=== PATIENT | female | born 1955 | race Caucasian/White ===

== ENCOUNTER → 2016-06-20 | Outpatient (CLI) | payer OTHER ==
[~2016-06-20] MED LIST: AMT24 PO; CALC-274 PO; CZR25 PO; ESTR1CRE PV; GLUC250C PO; LEVO75TA PO; MULT-506 PO; OMEG10007 PO; POLY335025 PO; VENL75CA PO
--- NOTE | 2016-06-20 16:44 | MAMMOGRAPHY REPORT ---
BILATERAL DIGITAL SCREENING MAMMOGRAM TOMOSYNTHESIS WITH CAD: 06/20/2016 CLINICAL HISTORY: Routine screening. Patient has no complaints. TECHNIQUE: Breast tomosynthesis in addition to standard 2D mammography was performed. Current study was also evaluated with a Computer Aided Detection (CAD) system. COMPARISON: Comparison is made to exams dated: 06/21/2013 mammogram, 05/15/2011 mammogram, and 08/02/19 10 mammogram - [facility]. BREAST COMPOSITION: The tissue of both breasts is heterogeneously dense, which may obscure small ma sses. FINDINGS: No suspicious masses, calcifications, or areas of architectural distortion are noted in e ither breast. There has been no significant interval change compared to prior exams. IMPRESSION: ACR BI-RADS CATEGORY 1: NEGATIVE There is no mammographic evidence of malignancy. A 1 year screening mammogram is recommended. The p atient will receive written notification of the results. Approximately 10% of breast cancers are not detected with mammography. A negative mammographic repor t should not delay biopsy if a clinically suggestive mass is present. Lisset Arteaga M.D. ah/:06/20/2016 15:52:29 Ep Specialist: Licha Villarreal RT(R)(M), [facility] letter sent: Normal 1/2 BI-RADS Code: ACR BI-RADS Category 1: Negative
== END | disposition home or self-care (01) ==
LOC: C.MAMM 11:29
PROVIDERS: ATTEND Obstetrics & Gynecology
DX: Z12.31 Encounter for screening mammogram for malignant neoplasm of breast (principal)

== ENCOUNTER 2025-02-28 11:45 | Inpatient (IN) ==
[2025-02-28] MEDS: AMIODARONE / D5W 360 MG/200 ML BAG IV ONE (11:52)
--- NOTE | 2025-02-28 11:57 | Emergency Department Note ---
Impression & Plan Acute non-ST elevation myocardial infarction (NSTEMI), Chest pain, Elevated troponin I level, Hypokalemia ED Provider Note NAME: JASSI BEDOLLA AGE: 69 SEX: F : 1955 ARRIVES VIA: Ambulance INFORMANT: Patient, EMS ED PROVIDER(S): Gregory Alarcon DO CHIEF COMPLAINT: Chest pain HPI: The patient is a 69-year-old female who presented to the emergency department for an evaluation of chest pain. The patient had acute onset of chest pain while doing exertional activity and exercising this morning. The patient denies having any lower extremity pain. She denies having any abdominal pain or back pain. She describes the pain as a heaviness across her anterior chest. She has no history of STEMI in the past. The patient was noted to have frequent PVCs as well as hypotension prior to arrival. She was treated with aspirin as well as IV fluid. She was given a liter of normal saline prior to arrival. She also was receiving amiodarone bolus and drip because of bigeminy. The patient's blood pressure as well as pulse rate have improved at this time. Her pain she still rates is an 8 out of 10. ROS: See above HPI for pertinent positives & negatives. A total of 10 systems reviewed and were otherwise negative. PAST MEDICAL HISTORY: See Below PAST SURGICAL HISTORY: See Below FAMILY HISTORY: See Below SOCIAL HISTORY: See Below HOME MEDICATIONS: See Below ALLERGIES: See Below VITALS: See Below PHYSICAL EXAMINATION: GENERAL: The patient is awake and alert. The patient is very anxious. EYES: The conjunctivae are clear. The pupils are round and reactive. EARS, NOSE, MOUTH AND THROAT: The nose is without any evidence of any deformity. NECK: The neck is nontender and supple. RESPIRATORY: Normal respiratory effort is noted there is no evidence of wheezing rhonchi or rales CARDIOVASCULAR: Regular rate and rhythm noted there no murmurs rubs or gallops normal S1 normal S2. GASTROINTESTINAL: The abdomen is soft. Abdomen is nontender. MUSCULOSKELETAL/EXTREMITIES: There is no evidence of gross deformity full range of motion is noted in the hips and shoulders. SKIN: There is no obvious evidence of any rash. There are no petechiae, pallor or cyanosis noted. Pulses are symmetric in both wrist. NEUROLOGIC: Patient is awake alert and oriented x3 MEDICAL DECISION MAKING: The patient is a 69-year-old female who presented to the emergency department by ambulance. I did receive a prehospital notification about the patient. The naval aircrewman mechanical was very concerned because the patient was having chest pain which was not controlled. EKG showed some nonspecific inferior changes that were concerning. The patient was treated with aspirin prior to arrival. She was also treated with IV fluids for hypotension and also started on amiodarone drip for frequent ectopy. Upon arrival the patient was further treated with IV fluids in the emergency department. I discussed patient's laboratory and radiographic studies with her. I discussed the limitations of the emergency department workup her chest pain with her. Given her presentation I discussed her condition with the on-call interventional neuroradiologist. I also discussed her condition with the [facility] junior web designer in the [facility]. The patient was found to have an elevated troponin. Bedside echocardiogram did show a decrease in her ejection fraction. It could be consistent with Takotsubo's but because of the possibility of cardiogenic shock the patient was felt to be a better candidate for cardiac catheterization. She was started on IV heparin. She was reevaluated multiple times. Triage Nursing notes reviewed. Prior medical records reviewed Vital Signs: reviewed and remarkable for hypotension and tachycardia. Differential diagnosis: Cardiac ischemia, aortic dissection, pulmonary embolism, pneumothorax, pneumonia, pericarditis, myocarditis, esophageal rupture, GERD, cholecystitis, pancreatitis, musculoskeletal, as well as other pathologies. ER treatment provided: See below Diagnostics interpreted by me: ECG: EKG was obtained in the emergency department. My interpretation is normal sinus rhythm at 65 bpm. There is no ectopy. There is no acute ST segment elevations noted. This was compared to a tracing from July 05, 2024. No specific changes were noted. Prehospital EKG was reviewed. My interpretation is normal sinus rhythm at 78 bpm. Frequent PVCs were noted. There were some ST segment abnormalities inferiorly. There was also RI depression inferiorly. These changes seem to improve compared to the tracing obtained in the emergency department. A second EKG was obtained in the emergency department. My interpretation is normal sinus rhythm. There is no ectopy noted. Nonspecific ST abnormalities were suggested in inferior leads. This compares similar to the initial tracing obtained in the emergency department. Cardiac Monitoring: An order was placed for continuous cardiac monitoring. The monitor shows a rate of 109 bpm with sinus tachycardia. Laboratory studies: As stated above and show below. Imaging studies: See below. Radiographic imaging was reviewed by myself Consultation(s): I discussed this case with Dr. Hurtado who is on-call for interventional cardiology. I discussed this case with Dr. Iglesias who is on for the [facility] hospitalist group. I discussed this case with Gerry Beltrán who was covering for the [facility] cardiology group. ED COURSE: Procedures: none Critical Care: I have personally spent greater than 40 minutes of critical care time in the direct management of this patient. This includes bedside care, interpretation of diagnostic studies, and testing, discussion with consultants, patient, and family members, and other required patient management activities. This 40 minutes is in excess of all separately billable procedures. Past Med/Surg History Problem List (Updated 02/28/25 @ 13:28 by Gerry Beltrán) Family history of ischemic heart disease (IHD) Mitral regurgitation Mitral valve prolapse Abnormal echocardiogram Elevated troponin NSTEMI (non-ST elevated myocardial infarction) Hypokalemia (Acute) Elevated troponin I level (Acute) Chest pain (Acute) Acute non-ST elevation myocardial infarction (NSTEMI) (Acute) Medical History Constipation HTN (hypertension) Social History Smoking Status: Never smoker marital status: Current Living Situation: Family Feels Safe at Home: Yes Allergies Allergies Allergy/AdvReac Type Severity Reaction Status Date / Time diphenhydramine Allergy Unknown "SENSITIVITY Verified 09/06/13 11:51 TO BENADRYL" IV CONTRAST DYE AdvReac Severe THROAT Uncoded 02/02/18 12:55 SWELLING Home Meds Home Medications Medication Instructions Recorded Confirmed calcium 400 mg 2 tab PO DAILY 02/02/18 02/02/18 (carbonate)-magnesium 167 mg (oxide)-D3 133 unit tablet (Calcium Magnesium plus D) docusate sodium 50 mg capsule 50 mg PO DAILY 02/02/18 02/02/18 (Stool Softener) glucosamine sulfate 500 mg tablet 500 mg PO BID 02/02/18 02/02/18 (Glucosamine) levothyroxine 75 mcg tablet 75 mcg PO DAILY 02/02/18 02/02/18 (Synthroid) losartan 25 mg tablet (Cozaar) 25 mg PO DAILY 02/02/18 02/02/18 lubiprostone 24 mcg capsule 24 mcg PO BID 02/02/18 02/02/18 metoprolol succinate 25 mg 25 mg PO DAILY 02/02/18 02/02/18 tablet,extended release 24 hr multivitamin 1 tab PO DAILY 02/02/18 02/02/18 omega 1-kak-ixp-fish oil 1,000 mg 1 tab PO QID 02/02/18 02/02/18 (120 mg-180 mg) capsule (Fish Oil) venlafaxine 75 mg tablet 75 mg PO DAILY 02/02/18 02/02/18 Previous Rx's Medication Instructions Recorded linaclotide 290 mcg capsule 290 mcg PO DAILY #90 caps 01/11/19 (Linzess) Results & Data (ED) Vital Signs Vital Signs - 24 hr 02/28/25 11:45 02/28/25 11:53 02/28/25 11:56 Pulse Rate 66 Pulse Rate [Right Finger] 76 Respiratory Rate 30 H 25 H Respiratory Effort / Characteristics Non-Labored Spontaneous Non-Labored Spontaneous Respiratory Depth Normal Normal Respiratory Pattern Blood Pressure 104/66 Blood Pressure [Right Arm] 92/65 L Blood Pressure Mean 78 Blood Pressure Mean [Right Arm] 74 Pulse Oximetry 97 99 98 Oxygen Delivery Method Room Air Room Air Room Air Oxygen Flow Rate Fraction of Inspired Oxygen Sepsis Recent Fever Within 48 Hours No Sepsis New/Unexplained Change in Mental Status N/A Sepsis Action Taken by Nursing No Action Required 02/28/25 12:01 02/28/25 12:11 02/28/25 12:17 Pulse Rate Pulse Rate [Right Finger] 70 66 66 Respiratory Rate 24 20 24 Respiratory Effort / Characteristics Spontaneous Non-Labored Spontaneous Respiratory Depth Normal Normal Respiratory Pattern Regular Blood Pressure Blood Pressure [Right Arm] 103/75 112/70 98/59 L Blood Pressure Mean Blood Pressure Mean [Right Arm] 84 84 72 Pulse Oximetry 94 94 93 Oxygen Delivery Method Room Air Room Air Room Air Oxygen Flow Rate Fraction of Inspired Oxygen Sepsis Recent Fever Within 48 Hours Sepsis New/Unexplained Change in Mental Status Sepsis Action Taken by Nursing 02/28/25 12:20 02/28/25 12:26 02/28/25 12:33 Pulse Rate Pulse Rate [Right Finger] 62 68 72 Respiratory Rate 20 24 22 Respiratory Effort / Characteristics Non-Labored Spontaneous Non-Labored Spontaneous Respiratory Depth Normal Normal Respiratory Pattern Blood Pressure Blood Pressure [Right Arm] 96/58 L 93/33 L 95/60 L Blood Pressure Mean Blood Pressure Mean [Right Arm] 70 53 71 Pulse Oximetry 93 93 86 L Oxygen Delivery Method Room Air Room Air Room Air Oxygen Flow Rate Fraction of Inspired Oxygen Sepsis Recent Fever Within 48 Hours Sepsis New/Unexplained Change in Mental Status Sepsis Action Taken by Nursing 02/28/25 12:33 02/28/25 12:36 02/28/25 12:41 Pulse Rate 67 Pulse Rate [Right Finger] 69 Respiratory Rate 20 Respiratory Effort / Characteristics Respiratory Depth Normal Respiratory Pattern Blood Pressure Blood Pressure [Right Arm] 112/79 Blood Pressure Mean Blood Pressure Mean [Right Arm] 90 Pulse Oximetry 89 L Oxygen Delivery Method Nasal Cannula Nasal Cannula Oxygen Flow Rate 4 4 Fraction of Inspired Oxygen Sepsis Recent Fever Within 48 Hours Sepsis New/Unexplained Change in Mental Status Sepsis Action Taken by Nursing 02/28/25 12:45 02/28/25 13:10 02/28/25 13:16 Pulse Rate Pulse Rate [Right Finger] 68 78 70 Respiratory Rate 22 22 19 Respiratory Effort / Characteristics Non-Labored Spontaneous Non-Labored Spontaneous Non-Labored Spontaneous Respiratory Depth Normal Normal Normal Respiratory Pattern Blood Pressure Blood Pressure [Right Arm] 108/73 90/63 L 80/52 L Blood Pressure Mean Blood Pressure Mean [Right Arm] 84 72 61 Pulse Oximetry 96 95 94 Oxygen Delivery Method Nasal Cannula Nasal Cannula Nasal Cannula Oxygen Flow Rate 4 4 4 Fraction of Inspired Oxygen Sepsis Recent Fever Within 48 Hours Sepsis New/Unexplained Change in Mental Status Sepsis Action Taken by Nursing 02/28/25 13:20 02/28/25 14:26 Pulse Rate 109 H Pulse Rate [Right Finger] 66 Respiratory Rate 24 20 Respiratory Effort / Characteristics Non-Labored Spontaneous Respiratory Depth Normal Respiratory Pattern Blood Pressure Blood Pressure [Right Arm] 99/53 L Blood Pressure Mean Blood Pressure Mean [Right Arm] 68 Pulse Oximetry 93 91 Oxygen Delivery Method Nasal Cannula Oxygen Flow Rate 4 Fraction of Inspired Oxygen 100 Sepsis Recent Fever Within 48 Hours Sepsis New/Unexplained Change in Mental Status Sepsis Action Taken by Prison Medications Current Medication List: was personally reviewed by me Laboratory Data Attestation: I reviewed the patient's lab results. 02/28/25 11:53 02/28/25 11:53 Lab Results 02/28/25 02/28/25 Range/Units 11:53 11:56 WBC 5.69 (4.8-10.8) K/ul RBC 4.00 L (4.20-5.40) M/uL Hgb 12.3 (12.0-16.0) g/dl POC Hgb 12.9 (12.0-16.0) g/dl Hct 36.4 L (37.0-47.0) % POC Hct 38 (37-47) % MCV 91.0 (80.0-100.0) fL MCH 30.8 (25.0-34.0) pg MCHC 33.8 (32.0-36.0) g/dL RDW Std Deviation 44.3 (36.4-46.3) fL RDW Coeff of Roddy 13.2 (11.5-14.5) % Plt Count 225 (130-400) K/uL MPV 9.8 (9.4-12.4) fL Immature Gran % (Auto) 0.2 % Neut % (Auto) 43.5 % Lymph % (Auto) 44.1 % [place] % (Auto) 9.5 % Eos % (Auto) 1.8 % Baso % (Auto) 0.9 % Neut # (Auto) 2.48 (1.40-6.50) K/uL Lymph # (Auto) 2.51 (1.20-3.40) K/uL [place] # (Auto) 0.54 (0.11-0.59) K/uL Eos # (Auto) 0.10 (0.00-0.50) K/uL Baso # (Auto) 0.05 (0.00-0.20) K/uL Immature Gran # (Auto) 0.01 (0.01-0.20) K/uL PT 10.7 (9.0-12.0) Seconds INR 1.0 (0.9-1.1) APTT 26 (21-31) Seconds PTT Ratio 1.0 POC Sodium 134 L (135-144) mmol/L Sodium 132 L (136-145) mmol/L POC Potassium 2.9 L (3.3-5.0) mmol/L Potassium 3.0 L (3.5-5.1) mmol/L POC Chloride 101 (101-112) mmol/L Chloride 100 (98-107) mmol/L Carbon Dioxide 22 (21-32) mmol/L POC Total CO2 20 L (24-31) mmol/L Anion Gap 10 (3-11) POC Anion Gap 18.0 (16-25) mmol/L POC BUN 13 (7-18) mg/dl BUN 13 (6-23) mg/dl Creatinine 0.74 (0.6-1.2) mg/dl POC Creatinine 0.7 (0.6-1.3) mg/dl Est Cr Clr Drug Dosing 68.1 ml/min eGFR 88.07 BUN/Creatinine Ratio 17.6 (10-20) Glucose 140 H (70-99(Fasting)) mg/dl POC Glucose (other) 135 H (70-99) mg/dl Calcium 8.3 L (8.6-10.3) mg/dl POC Ioniz Calcium Rafael 1.00 L (1.12-1.32) mmol/l Magnesium 1.9 (1.7-2.4) mg/dl Total Bilirubin 0.5 (0.2-1.0) mg/dl AST 26 (13-39) U/L ALT 14 (7-52) U/L Alkaline Phosphatase 50 (34-104) U/L Troponin I High Sens 432.0 H* (0-14) pg/ml Total Protein 6.4 (6.0-8.3) gm/dl Albumin 3.6 (3.4-5.0) gm/dl Globulin 2.8 (2.5-4.0) gm/dl Albumin/Globulin Ratio 1.3 (0.9-2) Lipase 41 (11-82) U/L Administered Medications Amiodarone HCl/Dextrose (Nexterone / D5w) 360 mg in 200 mls @ 33.333 mls/hr IV ONE ONE; Protocol Stop: 02/28/25 17:40 Last Admin: 02/28/25 11:52 Dose: 1 mg/min, 33.3 mls/hr Documented By: NRB Co-signed By: KATE Sodium Chloride (Nss) 500 mls @ 80 mls/hr IV .Q6H15M DEMARIO Stop: 02/28/25 18:59 Last Admin: 02/28/25 13:09 Dose: 80 mls/hr Documented By: NRB Heparin Sodium/Dextrose (Heparin 21186 Unit/500 Ml D5w) 25,000 units in 500 mls @ 14 mls/hr IV .Q24H DEMARIO; Protocol Stop: 03/30/25 12:59 Last Admin: 02/28/25 13:05 Dose: 700 units/hr, 14 mls/hr Documented By: GREGORY Co-signed By: VASU Potassium Chloride (K Rehan / Wtr) 10 meq in 100 mls @ 100 mls/hr IV Q1H DEMARIO Stop: 02/28/25 14:59 Last Admin: 02/28/25 13:07 Dose: 100 mls/hr Documented By: GREGORY Discontinued Medications Diphenhydramine HCl (Diphenhydramine 50 Mg/Ml Vial) 25 mg IV NOW STA Stop: 02/28/25 12:38 Last Admin: 02/28/25 12:51 Dose: 25 mg Documented By: GREGORY Heparin Sodium (Porcine) (Heparin Sod (Porcine) 1000 Unit/Ml) 1 units IV NOW ONE Stop: 02/28/25 12:55 Last Admin: 02/28/25 13:03 Dose: 4,000 units Documented By: GREGORY Co-signed By: VASU Famotidine (Pepcid 20mg Iv Push) 20 mg in 5 mls @ 2.5 mls/min IV NOW STA Stop: 02/28/25 12:38 Last Admin: 02/28/25 12:52 Dose: 2.5 mls/min Documented By: GREGORY Methylprednisolone (Methylprednisolone 125 Mg/2 Ml Vial) 125 mg IV NOW STA Stop: 02/28/25 12:38 Last Admin: 02/28/25 12:51 Dose: 125 mg Documented By: GREGORY Ondansetron HCl (Ondansetron Inj 2 Mg/Ml 2 Ml Vial) 4 mg IV NOW STA Stop: 02/28/25 13:26 Last Admin: 02/28/25 13:30 Dose: 4 mg Documented By: GREGORY Potassium Chloride (Potassium Chloride 10 Meq Tabcr) 40 meq PO NOW STA Stop: 02/28/25 12:57 Last Admin: 02/28/25 13:07 Dose: 40 meq Documented By: GREGORY Imaging Data Attestation: I personally reviewed and interpreted this imaging study as follows: My Impression: 1 view chest x-ray was obtained in the emergency department. My interpretation is no free air or definite infiltrate, final report below. Radiologist's Impression: Chest X-Ray 02/28/25 11:41 XR chest 1V portable HISTORY: 69 years-old Female Chest pain, nonspecific COMPARISON: 11/13/2015 TECHNIQUE: AP view of the chest FINDINGS: Cardiac silhouette is enlarged. There is mild nonspecific coarsening of the interstitium which is new from prior. No pneumothorax, pleural effusion or lobar airspace consolidation. Degenerative changes of the shoulders and spine. IMPRESSION: 1. Cardiomegaly without pulmonary edema. 2. No airspace consolidation typical for pneumonia. 3. Nonspecific coarsening of the interstitium may be chronic or represent a nonspecific interstitial pneumonitis. ACT 112: Negative or not required by law. The above report was generated using voice recognition software. It may contain grammatical, syntax or spelling errors. Electronically signed by: Ilya Koo M.D. 02/28/2025 12:07 PM Discharge Plan Visit Data Chief Complaint: Hypotension Stated Complaint: HYPOTENSION, CHEST PAIN ED Provider: Gregory Alarcon Discharge Problem: Acute non-ST elevation myocardial infarction (NSTEMI), Chest pain, Elevated troponin I level, Hypokalemia Patient Disposition: Being Evaluated by Hospitalist Condition: Fair Discharge Instructions Interventions: ED Discharge Assessment Last Done: 02/28/25 13:32
--- NOTE | 2025-02-28 12:09 | XRay Report ---
XR chest 1V portable HISTORY: 69 years-old Female Chest pain, nonspecific COMPARISON: 11/13/2015 TECHNIQUE: AP view of the chest FINDINGS: Cardiac silhouette is enlarged. There is mild nonspecific coarsening of the interstitium which is new from prior. No pneumothorax, pleural effusion or lobar airspace consolidation. Degenerative changes of the shoulders and spine. IMPRESSION: 1. Cardiomegaly without pulmonary edema. 2. No airspace consolidation typical for pneumonia. 3. Nonspecific coarsening of the interstitium may be chronic or represent a nonspecific interstitial pneumonitis. ACT 112: Negative or not required by law. The above report was generated using voice recognition software. It may contain grammatical, syntax o r spelling errors. Electronically signed by: Ilya Koo M.D. 02/28/2025 12:07 PM
[2025-02-28 12:17] LABS: Hematocrit (blood only) 36.4 % (37.0-47.0); Hemoglobin 12.3 g/dl (12.0-16.0); Immature Granulocytes # (auto) 0.01 K/uL (0.01-0.20); Immature Granulocytes % (auto) 0.2 %; Mean Corpuscular Hemoglobin 30.8 pg (25.0-34.0); Mean Corpuscular Volume 91.0 fL (80.0-100.0); Platelet Count 225 K/uL (130-400); RDW Standard Deviation 44.3 fL (36.4-46.3); Red Blood Count 4.00 M/uL (4.20-5.40); White Blood Count 5.69 K/ul (4.8-10.8)
[2025-02-28 12:46] LABS: Alanine Aminotransferase 14.0 U/L (7-52); Albumin Globulin Ratio 1.3 (0.9-2); Albumin Level 3.6 gm/dl (3.4-5.0); Alkaline Phosphatase 50.0 U/L (34-104); Anion Gap 10.0 (3-11); Bilirubin,Total 0.5 mg/dl (0.2-1.0); Blood Urea Nitrogen 13.0 mg/dl (6-23); Calcium 8.3 mg/dl (8.6-10.3); Carbon Dioxide 22.0 mmol/L (21-32); Chloride 100.0 mmol/L (98-107); Creatinine Clr Calc Pharmacy 68.1 ml/min; Globulin 2.8 gm/dl (2.5-4.0); Glucose 140.0 mg/dl (70-99(Fasting)); Lipase 41.0 U/L (11-82); Magnesium 1.9 mg/dl (1.7-2.4); Potassium 3.0 mmol/L (3.5-5.1); Sodium 132.0 mmol/L (136-145); Total Protein 6.4 gm/dl (6.0-8.3)
[2025-02-28] MEDS: diphenhydrAMINE 50 MG/ML VIAL IV STA (12:51)
[2025-02-28] MEDS: FAMOTIDINE 20MG IV PUSH 20 MG/5 ML SYR IV STA (12:52)
[2025-02-28 12:57] LABS: INR 1.0 (0.9-1.1); Partial Thromboplastin Time 26 Seconds (21-31); Prothrombin Time 10.7 Seconds (9.0-12.0)
[2025-02-28] MEDS: HEPARIN SOD (PORCINE) 1000 UNIT/ML IV ONE (13:03)
[2025-02-28] MEDS: HEPARIN 25000 UNIT/500 ML D5W 25,000 UNITS/500 ML BAG IV SCH (13:05)
[2025-02-28] MEDS: POTASSIUM CHLORIDE 10 MEQ TABCR PO STA (13:07)
[2025-02-28] MEDS: POTASSIUM CHLORIDE / WTR 10 MEQ/100 ML PLCT IV SCH (13:07)
[2025-02-28] MEDS: SODIUM CHLORIDE 0.9% 500 ML IV SCH (13:09)
--- NOTE | 2025-02-28 13:12 | Cardiology Consultation ---
Date of Consultation February 28, 2025 Assessment & Plan (1) Chest pain: (2) NSTEMI (non-ST elevated myocardial infarction): (3) Elevated troponin: (4) Abnormal echocardiogram: (5) Hypokalemia: (6) Mitral valve prolapse: (7) Mitral regurgitation: (8) Family history of ischemic heart disease (IHD): Plan 69 year old female presenting via EMS with severe chest heaviness associated shortness of breath and diaphoresis while performing exercises in the living room. Rhythm strips with frequent ventricular ectopy, EKG with mild interior and lateral ST segment elevation. Patient with ongoing chest discomfort. High- sensitivity troponin elevated at 432 pg/mL. Preliminary resting echocardiography with reduced systolic function, EF 20 to 25%, with wall motion abnormalities suggesting stress induced cardiomyopathy versus multivessel coronary artery disease. Chest x-ray revealed cardiomegaly nonspecific coarsening of the interstitium. Risk factors include hypertension, mild dyslipidemia, family history of CAD in both parents. Options of management discussed. Patient premedicated with IV fluids, IV Solu-Medrol, IV Pepcid, and IV Benadryl prior to being taken to the cardiac catheterization laboratory. Potassium supplemented. Patient will likely require IV diuretic therapy post catheterization, following correction of hypokalemia Supervising Physician Co-Signing Physician Notes Patient seen and examined. Past medical history, surgical history, social history and family history have been reviewed. The medical record and all the above studies have been reviewed. Case DW NIKOLAS including management. Cardiogenic shock Hypokalemia Severe Mitral Regurgitation Chest Pain Abnormal Troponin 02/28/25 ECHO Interpretation Summary Left ventricular systolic function is severely reduced. Left Ventricular Ejection Fraction = 15-20%. All segments are akinetic except for basal segments. Left atrium is mildly to moderately dilated. Trace aortic regurgitation. Mild pulmonic valvular regurgitation. There is severe mitral regurgitation. There is moderate to severe tricuspid regurgitation. Right ventricular systolic pressure is elevated at 40-50mmHg. Potassium was supplemented IV Heparin was started Cardiac cath DW patient and at bedside who want to proceed with cardiac cath Case DW IC Dr. Hurtado Patient was pre-medicated for IV Dye allergy with IV steroids, IV Benadryl and IV Pepcid and was urgently taken to the cardiac laborer pipelines History of Present Illness Reason for Consultation: Chest pain Requesting Physician: [facility] Hospitalist Service Attending Physician: [facility] Hospitalist Service History of Present Illness Priscilla German is a very pleasant 69-year-old female who presented to the [facility] ER via EMS this morning after developing acute severe chest heaviness across the anterior chest with associated shortness of breath while performing exercises in the living room. Patient pale, diaphoretic, and hypotensive with systolic blood pressure in the 80s when initially evaluated by who summoned EMS. Frequent PVCs observed along with minimal lateral ST segment elevation. Patient treated with aspirin and a liter of normal saline, receiving IV amiodarone bolus and infusion due to frequent ectopy. Initial EKG in the ER revealed normal sinus rhythm at 65 bpm with low voltage QRS, minimal inferolateral ST elevation. High-sensitivity troponin elevated at 432 pg/mL. Chest x-ray revealed cardiomegaly nonspecific coarsening of the interstitium. Patient with ongoing fleeting chest pain albeit improved. Preliminary resting echocardiography with reduced systolic function, EF 20 to 25%, with wall motion abnormalities. Risk factors include hypertension, mild dyslipidemia, family history of CAD in both parents History predominantly obtained through Tal German who notes patient has chronically been experiencing exertional chest discomfort as well as shortness of breath. Stress testing last transpired on June 08, 2024 with patient exercising for 8 minutes and 15 seconds on a standard John protocol, to 9.9 METS, only achieving 76% age-predicted maximum heart rate, without evidence of exercise-induced myocardial ischemia at workload and heart rate achieved. LV systolic function preserved, EF 60 to 64% at that time. Moderate mitral valve prolapse present with moderate mitral regurgitation. No evidence of pulmonary hypertension noted. Post-rest imaging of the mitral valve insufficiency not obtained. EF preserved Patient with mitral valve prolapse with moderate mitral regurgitation, mild dyslipidemia, and family history of coronary artery disease in both parents. Additional history includes hypothyroidism, obsessive-compulsive disorder, glaucoma, chronic constipation. Bowels did move twice today. Past Surgical History includes foot/toe surgery, ovarian cyst surgery, tonsillectomy, bilateral cataract extraction, tear duct surgery Family History: Positive for CAD in parents. Mother with renal cancer. Father with bladder cancer. Social History: Never smoker. No smokeless tobacco. No alcohol. No illegal drug use. to Tal. 2 grown children, grandchildren Allergies Allergy/AdvReac Type Severity Reaction Status Date / Time diphenhydramine Allergy Unknown "SENSITIVITY Verified 09/06/13 11:51 TO BENADRYL" IV CONTRAST DYE AdvReac Severe THROAT Uncoded 02/02/18 12:55 SWELLING Home Medications Medication Instructions Recorded Confirmed Type calcium 400 mg 2 tab PO DAILY 02/02/18 02/02/18 History (carbonate)-magnesium 167 mg (oxide)-D3 133 unit tablet (Calcium Magnesium plus D) docusate sodium 50 mg capsule 50 mg PO DAILY 02/02/18 02/02/18 History (Stool Softener) glucosamine sulfate 500 mg tablet 500 mg PO BID 02/02/18 02/02/18 History (Glucosamine) levothyroxine 75 mcg tablet 75 mcg PO DAILY 02/02/18 02/02/18 History (Synthroid) losartan 25 mg tablet (Cozaar) 25 mg PO DAILY 02/02/18 02/02/18 History lubiprostone 24 mcg capsule 24 mcg PO BID 02/02/18 02/02/18 History metoprolol succinate 25 mg 25 mg PO DAILY 02/02/18 02/02/18 History tablet,extended release 24 hr multivitamin 1 tab PO DAILY 02/02/18 02/02/18 History omega 9-ovf-pfe-fish oil 1,000 mg 1 tab PO QID 02/02/18 02/02/18 History (120 mg-180 mg) capsule (Fish Oil) venlafaxine 75 mg tablet 75 mg PO DAILY 02/02/18 02/02/18 History linaclotide 290 mcg capsule 290 mcg PO DAILY #90 caps 01/11/19 Rx (Linzess) Patient History Medical History Constipation HTN (hypertension) Social History Smoking Status: Never smoker marital status: Current Living Situation: Family Feels Safe at Home: Yes Review of Systems Review of Systems: As above, otherwise negative or noncontributory Physical Exam Physical Exam: General: Lying supine. Pale. Alert and oriented. HENT: Normocephalic. Atraumatic. Throat is clear, without edema Eyes: PER. Conjunctiva pink, sclera clear. Neck: JVD. HJR Heart: RRR, 66 bpm. Grade II/ systolic murmur. No rub. Lungs: Anterioir rales. No wheeze. Abdomen: +BS. Soft. Nontender. No masses or organomegaly. Extremities: No clubbing, cyanosis, or edema. Limited neurological examination is without focal deficits. Pulses: Posterior tibial=2/4. Results & Data Vital Signs (Past 12 Hours) Vital Signs Pulse Pulse Resp BP BP Pulse Ox O2 Del Method 02/28/25 12:45 68 22 108/73 96 Nasal Cannula 02/28/25 12:41 69 20 112/79 89 L Nasal Cannula 02/28/25 12:36 Nasal Cannula 02/28/25 12:33 67 02/28/25 12:33 72 22 95/60 L 86 L Room Air 02/28/25 12:26 68 24 93/33 L 93 Room Air 02/28/25 12:20 62 20 96/58 L 93 Room Air 02/28/25 12:17 66 24 98/59 L 93 Room Air 02/28/25 12:11 66 20 112/70 94 Room Air 02/28/25 12:01 70 24 103/75 94 Room Air 02/28/25 11:56 76 25 H 92/65 L 98 Room Air 02/28/25 11:53 99 Room Air 02/28/25 11:45 66 30 H 104/66 97 Room Air O2 Flow Rate 02/28/25 12:45 4 02/28/25 12:41 4 02/28/25 12:36 4 02/28/25 12:33 02/28/25 12:33 02/28/25 12:26 02/28/25 12:20 02/28/25 12:17 02/28/25 12:11 02/28/25 12:01 02/28/25 11:56 02/28/25 11:53 02/28/25 11:45 Laboratory Results Cardiac Enzymes 02/28/25 Range/Units 11:53 AST 26 (13-39) U/L Troponin I High Sens 432.0 H* (0-14) pg/ml Coagulation 02/28/25 Range/Units 11:53 PT 10.7 (9.0-12.0) Seconds APTT 26 (21-31) Seconds CBC 02/28/25 Range/Units 11:53 WBC 5.69 (4.8-10.8) K/ul RBC 4.00 L (4.20-5.40) M/uL Hgb 12.3 (12.0-16.0) g/dl Hct 36.4 L (37.0-47.0) % Plt Count 225 (130-400) K/uL Neut # (Auto) 2.48 (1.40-6.50) K/uL Lymph # (Auto) 2.51 (1.20-3.40) K/uL Erath # (Auto) 0.54 (0.11-0.59) K/uL Eos # (Auto) 0.10 (0.00-0.50) K/uL Baso # (Auto) 0.05 (0.00-0.20) K/uL Comprehensive Metabolic Panel 02/28/25 Range/Units 11:53 Sodium 132 L (136-145) mmol/L Potassium 3.0 L (3.5-5.1) mmol/L Chloride 100 (98-107) mmol/L Carbon Dioxide 22 (21-32) mmol/L BUN 13 (6-23) mg/dl Creatinine 0.74 (0.6-1.2) mg/dl Glucose 140 H (70-99(Fasting)) mg/dl Calcium 8.3 L (8.6-10.3) mg/dl AST 26 (13-39) U/L ALT 14 (7-52) U/L Alkaline Phosphatase 50 (34-104) U/L Total Protein 6.4 (6.0-8.3) gm/dl Albumin 3.6 (3.4-5.0) gm/dl Intake and Output 02/27/25 02/28/25 02/28/25 22:59 06:59 14:59 Intake Total 1000 / 1000 Balance 1000 / 1000 Intake: IV 1000 / 1000 Right Anterior Antecubital 1000 / 1000 Other: Weight 66.1 kg Weight Measurement Method Built in [facility] Patient Weight 03/01/25 06:59 Weight 66.1 kg Diagnostic Findings See above. PG Care Time/CCT Total # of Minutes Spent Total Time Spent with Patient: Total time spent is greater than 50% in coordination of care (as documented) at patient's floor/unit and/or counseling patient. I spent a total of 60 minutes on the date of service in preparation, delivery, and documentation of the care provided to this patient excluding any time spent in the performance of separately billed services. This visit was a split-shared visit with the substantive portion of the medical decision making performed by the supervising board writer/billing provider. Coding Level of Care Code 86964 INT INP/OBS CARE 3/75MIN Diagnoses Chest pain R07.9 NSTEMI (non-ST elevated myocardial infarction) I21.4 Elevated troponin R79.89 Abnormal echocardiogram R93.1 Hypokalemia E87.6 Mitral valve prolapse I34.1 Mitral regurgitation I34.0 Family history of ischemic heart disease (IHD) Z82.49
--- NOTE | 2025-02-28 13:20 | Pre Anesthesia Assessment ---
Date of Service February 28, 2025 Pre Sedation Assessment Vital Signs Pulse Pulse Resp BP BP Pulse Ox O2 Del Method 02/28/25 13:16 70 19 80/52 L 94 Nasal Cannula 02/28/25 13:10 78 22 90/63 L 95 Nasal Cannula 02/28/25 12:45 68 22 108/73 96 Nasal Cannula 02/28/25 12:41 69 20 112/79 89 L Nasal Cannula 02/28/25 12:36 Nasal Cannula 02/28/25 12:33 67 02/28/25 12:33 72 22 95/60 L 86 L Room Air 02/28/25 12:26 68 24 93/33 L 93 Room Air 02/28/25 12:20 62 20 96/58 L 93 Room Air 02/28/25 12:17 66 24 98/59 L 93 Room Air 02/28/25 12:11 66 20 112/70 94 Room Air 02/28/25 12:01 70 24 103/75 94 Room Air 02/28/25 11:56 76 25 H 92/65 L 98 Room Air 02/28/25 11:53 99 Room Air 02/28/25 11:45 66 30 H 104/66 97 Room Air O2 Flow Rate 02/28/25 13:16 4 02/28/25 13:10 4 02/28/25 12:45 4 02/28/25 12:41 4 02/28/25 12:36 4 02/28/25 12:33 02/28/25 12:33 02/28/25 12:26 02/28/25 12:20 02/28/25 12:17 02/28/25 12:11 02/28/25 12:01 02/28/25 11:56 02/28/25 11:53 02/28/25 11:45 Cardiovascular + regular rate Respiratory + respiratory effort normal Pre-Sedation Airway Assessment Smoking Status: Never smoker Hx Sleep Apnea: No Hx Difficult Intubation: No Short, Thick Neck: No Thyromental Distance: > or= 3.5 Finger Breadths Oral Cavity: + Dental Abnormalities Mallampati Class: III ASA: ASA3 Procedure Planning Contraindications for Sedation: none Current Medications Reviewed: Yes Notes The planned sedation has been discussed with the patient. Informed Consent was obtained. I have identified the patient, determined the appropriateness of sedation and have assessed the patient immediately prior to the procedure. All medicine(s) and interventions are by my order.
--- NOTE | 2025-02-28 13:24 | History & Physical Report ---
Date of Service February 28, 2025 Assessment & Plan (1) Acute non-ST elevation myocardial infarction (NSTEMI): (2) Hypokalemia: (3) HTN (hypertension): Plan Patient 69-year-old female who acute onset of chest pain, diaphoresis, breathing tightness and hypotension. Preliminary echocardiogram is consistent with new wall motion abnormalities and decreased ejection fraction and significantly elevated troponin in ED. Patient has evidence of acute coronary syndrome. Is at high risk for further deterioration compensation. She needs immediate hospital level care, intervention, specialty consultation. Admit to monitored setting Consult cardiology, they are recommending cardiac catheterization soon as possible IV amiodarone and heparin and continue while patient heading to the cardiac Medical Assistant Supervisor Reviewed outpatient medications ordered as appropriate Will hold ARB at this time, patient may need to be started on Entresto, will defer to cardiology Continue beta-fidencio Aspirin therapy Statin Monitor electrolytes and renal function Replace potassium, magnesium, calcium Check TSH and lipid panel at bedside updated the plan of care, bedside communication with cardiology, patient and as well. History of Present Illness Chief Complaint: Chest pain, diaphoresis, shortness of breath. Primary Care Provider: Juancho Cobos MD Patient 69-year-old female with overall fairly good state of health. She is quite active doing light exercising and walking on a daily basis. Today shortly after her morning exercise routine she became pale, diaphoretic, started to have chest discomfort across her chest and substernally and Generally felt unwell. Called 911. In the field EMS noticed significantly low blood pressure. Initial EKG showed frequent PVCs and questionably some mild ST-T wave changes inferior laterally. She was given aspirin, fluid bolus in the field and also started on amiodarone for concern of her PVCs degenerating into a more unstable rhythm. In the emergency room she was noted to be significantly ill. Blood pressure did improve somewhat with IV fluid resuscitation. Due to her presentation cardiology was consulted to see the patient immediately in the emergency department. Patient was referred to our service to coordinate her care through the hospital. At time my evaluation cardiology was at the bedside. Echocardiogram was being performed. Live interpretation of the echocardiogram by cardiology noted the significant wall motion abnormalities and decreased ejection fraction. There was concern of either global hypoperfusion versus Takotsubo cardiomyopathy. It was recommended that she go to the cardiac catheterization lab immediately. Laboratory study showed some electrolyte abnormalities. These were replaced. She was also started on amiodarone drip and heparin drip. is at the bedside. He reports that only real symptoms over the last couple weeks was noted that when she was going on her usual walks she was having some chest tightness versus shortness of breath when walking up the hill and sometimes had to stop and rest before completing the hill. It was difficult for them to tell whether this was a pulmonary or cardiac source. She actually had some outpatient lung function testing and scheduled to see pulmonary for further evaluation. She does have regular echocardiogram last echocardiogram was almost 1 year ago which at that time showed a normal ejection fraction. She did have a stress echo performed in May of this year. There was no evidence of ischemia on the stress echo. Ejection fraction was read as normal at that time. She did have some mitral valve prolapse and mitral regurgitation. But there was also no evidence of pulmonary hypertension. Patient was still having some ongoing chest pain and discomfort while here in the emergency department. She denies any fever or chills, no cough or cold symptoms. She has chronic constipation which she is on medication for but no changes in her bowel habits otherwise. No urinary complaints. No swelling in her hands arms legs or feet. Appetite has been good. And no life stressors recently per her or her . Patient has never smoked, no significant alcohol use. Both parents had significant coronary disease and required coronary bypass grafting. Allergies Allergy/AdvReac Type Severity Reaction Status Date / Time diphenhydramine Allergy Unknown "SENSITIVITY Verified 09/06/13 11:51 TO BENADRYL" IV CONTRAST DYE AdvReac Severe THROAT Uncoded 02/02/18 12:55 SWELLING Home Medications Medication Instructions Recorded Confirmed Type calcium 400 mg 2 tab PO DAILY 02/02/18 02/02/18 History (carbonate)-magnesium 167 mg (oxide)-D3 133 unit tablet (Calcium Magnesium plus D) docusate sodium 50 mg capsule 50 mg PO DAILY 02/02/18 02/02/18 History (Stool Softener) glucosamine sulfate 500 mg tablet 500 mg PO BID 02/02/18 02/02/18 History (Glucosamine) levothyroxine 75 mcg tablet 75 mcg PO DAILY 02/02/18 02/02/18 History (Synthroid) losartan 25 mg tablet (Cozaar) 25 mg PO DAILY 02/02/18 02/02/18 History lubiprostone 24 mcg capsule 24 mcg PO BID 02/02/18 02/02/18 History metoprolol succinate 25 mg 25 mg PO DAILY 02/02/18 02/02/18 History tablet,extended release 24 hr multivitamin 1 tab PO DAILY 02/02/18 02/02/18 History omega 3-iya-fyb-fish oil 1,000 mg 1 tab PO QID 02/02/18 02/02/18 History (120 mg-180 mg) capsule (Fish Oil) venlafaxine 75 mg tablet 75 mg PO DAILY 02/02/18 02/02/18 History linaclotide 290 mcg capsule 290 mcg PO DAILY #90 caps 01/11/19 Rx (Linzess) Past Med/Surg History Problem List (Updated 02/28/25 @ 13:28 by Gerry Beltrán) Family history of ischemic heart disease (IHD) Mitral regurgitation Mitral valve prolapse Abnormal echocardiogram Elevated troponin NSTEMI (non-ST elevated myocardial infarction) Hypokalemia (Acute) Elevated troponin I level (Acute) Chest pain (Acute) Acute non-ST elevation myocardial infarction (NSTEMI) (Acute) Medical History Constipation HTN (hypertension) Social History Smoking Status: Never smoker marital status: Current Living Situation: Family Feels Safe at Home: Yes Review of Systems Review of Systems: Pertinent positive and negative review of systems as mentioned in the HPI Physical Exam Physical Exam: Constitutional: Alert, moderately ill in appearance, nontoxic, pale HEENT: Mucous membranes moist. Sclera clear Neck: Soft, no adenopathy Lungs: Decreased breath sounds, few fine crackles and rales, no wheezes CV: S1-S2, regular, systolic murmur Abdomen: Soft, nontender, nondistended Extremities: No significant edema Musculoskeletal: No significant joint tenderness Neuro: No focal deficits, generally weak Psych: Cooperative, normal mood Results & Data Results & Data Vital Signs (Past 12 Hours) Vital Signs Pulse Pulse Resp BP BP Pulse Ox O2 Del Method 02/28/25 13:16 70 19 80/52 L 94 Nasal Cannula 02/28/25 13:10 78 22 90/63 L 95 Nasal Cannula 02/28/25 12:45 68 22 108/73 96 Nasal Cannula 02/28/25 12:41 69 20 112/79 89 L Nasal Cannula 02/28/25 12:36 Nasal Cannula 02/28/25 12:33 67 02/28/25 12:33 72 22 95/60 L 86 L Room Air 02/28/25 12:26 68 24 93/33 L 93 Room Air 02/28/25 12:20 62 20 96/58 L 93 Room Air 02/28/25 12:17 66 24 98/59 L 93 Room Air 02/28/25 12:11 66 20 112/70 94 Room Air 02/28/25 12:01 70 24 103/75 94 Room Air 02/28/25 11:56 76 25 H 92/65 L 98 Room Air 02/28/25 11:53 99 Room Air 02/28/25 11:45 66 30 H 104/66 97 Room Air O2 Flow Rate 02/28/25 13:16 4 02/28/25 13:10 4 02/28/25 12:45 4 02/28/25 12:41 4 02/28/25 12:36 4 02/28/25 12:33 02/28/25 12:33 02/28/25 12:26 02/28/25 12:20 02/28/25 12:17 02/28/25 12:11 02/28/25 12:01 02/28/25 11:56 02/28/25 11:53 02/28/25 11:45 Diagnostic Findings Reviewed imaging, laboratory and diagnostic studies. Pertinent findings as below. Reviewed telemetry strips from in the field, singular PVCs irregular intervals, questionably some lateral ST elevation. Reviewed EKG done in the field, again some possible mild ST elevation laterally approximately 1 mm or less Reviewed external EMR echocardiogram report, stress echo report, laboratory studies from previous WBCs 5.6 Hemoglobin 12.3 Platelets of 225 Coagulation studies within normal range Sodium 132 Potassium 3.0 Creatinine 0.74 Glucose 140 Calcium 8.3 Magnesium 1.9 LFTs within normal range Initial troponin 432 Personally reviewed chest x-ray, no consolidative infiltrates, no definitive effusions, no obvious edema Reviewed EKG done in ED, sinus rhythm, no obvious ST-T wave elevation, Q waves inferiorly Code Status & VTE Plan VTE Prophylaxis Plan VTE Prophylaxis will be ordered: No Reason for no VTE drug order: Contraindicated
[2025-02-28] MEDS: ONDANSETRON INJ 2 MG/ML 2 ML VIAL IV STA (13:30)
[2025-02-28] MEDS ORDERED: STAT IV Infusion **Titration per Protocol STA ×2 (14:29)
--- NOTE | 2025-02-28 14:32 | XCELERA ---
[id number]
[2025-02-28] MEDS: EPINEPHrine INJ 1 MG/ML AMP ONE (15:14)
[2025-02-28] MEDS: PROPOFOL IV EMULSION 10 MG/ML 100 ML VIAL (CATH LAB USE ONLY) IV ONE (15:14)
[2025-02-28] MEDS: niCARdipine 2,000 MCG/20 ML SYR ONE (15:15)
[2025-02-28] MEDS: OPTIRAY 350 ONE (15:15)
[2025-02-28] MEDS: ATROPINE SULFATE 0.1 MG/ML 10ML SYR IV ONE (15:15)
[2025-02-28] MEDS: NITROGLYCERIN/D5W 100MCG/ML 20ML SYR ONE (15:15)
[2025-02-28] MEDS: MIDAZOLAM HCL 1 MG/ML 2ML VIAL ONE ×3 (15:16→16:05)
[2025-02-28] MEDS: HEPARIN (PORCINE) 1000 UNIT/ML 10 ML (CATH LAB USE ONLY) ONE (15:16)
[2025-02-28] MEDS: IODIXANOL (VISIPAQUE) 320 MG/ML 100ML IV ONE (15:16)
[2025-02-28] MEDS: MIDAZOLAM BOLUS FROM BAG IV PRN (15:19)
[2025-02-28] MEDS: fentaNYL citrate 2,500 MCG/250 ML BAG IV ONE (15:38)
[2025-02-28] MEDS: MIDAZOLAM HCL 125 MG/250 ML BAG IV SCH (15:39)
[2025-02-28] MEDS: fentaNYL citrate 2,500 MCG/250 ML BAG IV SCH (15:39)
--- NOTE | 2025-02-28 15:40 | Cardiac Catheterization ---
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 Clinical evaluation leading to the procedure CAD Presenation: Non STEMI Anginal Classification: CCS IV Diagnostic Physicians Name: Timmy Hurtado MD Closure Device Recommendations: Medical Therapy and/or Counseling Cardiac Cath Procedure Full Procedure Date February 28, 2025 Pre-Procedure Diagnosis Pre-Procedure Diagnosis: Non STEMI AUC Score AUC Score: 9 Post-Procedure Diagnosis Post-Procedure Diagnosis: Normal Coronary Arteries, Elevated Intracardiac Pressures and Cardiothoracic Finding (Cardiogenic shock) Procedure(s) Performed Procedure(s) Performed: Coronary Angiography, Left Heart Cath, Right Heart Cath, Ultrasound Guided Vascular Access and Procedure (Impella CP) Food Crops Farm Hand Timmy Hurtado MD Software Configuration Manager(s) Showers Estimated Blood Loss Estimated Blood Loss: 15 Medication(s) Medication(s): Dopamine, Epinephrine, Fentanyl, Heparin, Lidocaine 1%, Norepinephrine and Versed Summary of Findings Indication: NSTEMI, severe LV dysfunction EF 25% with LAD distribution wall motion abnormality, cardiogenic shock Access: 6 Fr slender right radial artery. 14 Fr right PERSONAL SERVICE WORKERS. 7 Fr right CFV Catheters: [place], pigtail, 6 Fr [place], Impella CP catheter Findings: LM -normal caliber, no significant disease LAD -medium caliber, no significant disease, THOM I-II distal flow to apex. Circumflex -medium caliber, no significant disease. Large OM1 without disease RCA -dominant, large caliber no significant disease. During initial coronary angiography patient hypoxic to low 80s and hypotensive down to high 50s requiring initiation of norepinephrine, dopamine. Dopamine eventually transition to epinephrine. Right heart catheterization RA 12 RV 50/12 PA 42/24/32 LV 107/28 PaSat 30% Ao 83% on 12L Oxymask (norep 0.1, dopa 10). Narcisa CO/CI 2.8/1.6 Patient electively intubated by Dr. Brandt and respiratory therapy. PaSat 55% Pulse Ox 93% after intubation on 100% FiO2 (noepi 0.2, epi 0.1). Narcisa CO/CI 4.0/2.3 Impella CP placement 6 Fr sheath placed to right PERSONAL SERVICE WORKERS under ultrasound guidance Initial angiogram showed large caliber iliac arteries without significant disease. Heparin administered to ACT >250 Initial sheath exchanged for 14 Fr sheath over stiff wire Pigtail and 035 J-wire used to cross aortic valve and exchanged for 0.18 wire Impella CP placed to LV Output 3.5 L on auto settings Arterial Closure: TR band to radial artery access site. Remaining sheaths sutured into place Summary: 1. Angiographically normal coronary arteries 2. Cardiogenic shock 3. Elevated left and right sided filling pressures 4. Successful placement of Impella CP device Recommendations: Transfer to [facility] for further management of cardiogenic shock and possible Takotsubo's versus myocarditis. Hemodynamics Rest Ao:: 66/49/53 Final Ao: 105/67/81 LV: 107/28 Recommendations Recommendations: Medical Therapy and/or Counseling Specimens Specimens: None Radiation Exposure (mGy) 407 Contrast (mls) 40 Anesthesia Fentanyl/Versed (1348, 1502) Procedural Complication(s) None Disposition [facility] I attest to the content of the Intraoperative Record and any orders documented therein. Any exceptions are noted below. [facility] Card Cath Procedure Codes Cardiac Catheterization Procedure 1: Cardiovascular Cath Procedures: 32579 Coronaries & LHC (+/-LV) & RHC Therapeutic Services & Ancillary Procedure 1: Cardiovascular Tx and Anc Procedures: 11339 Insertion of Percutaneous Ventricular Assist Device Procedure 2: Cardiovascular Tx and Anc Procedures: 06397 Ultrasonic Guidance Vascular Access Procedure 3: Cardiovascular Tx and Anc Procedures: 80105 Ultrasonic Guidance Vascular Access Moderate Sedation Procedure 1: Sedation/Anesthesia: 82516 Mod Sedation by the same physician;Init15 Min Child Age 5 & Up Procedure 2: Sedation/Anesthesia: 25660 Mod Sedation by the same physician; Ea [id number] Minutes PG Care Time/CCT Total # of Minutes Spent Total Time Spent with Patient: Total time spent is greater than 50% in coordination of care (as documented) at patient's floor/unit and/or counseling patient:
[2025-02-28] MEDS: AMIODARONE 360MG / 200ML D5W (CATH LAB USE ONLY) IV ONE (15:42)
[2025-02-28] MEDS: 0.2 MICRON FILTER SET 1 EACH IV ONE (15:43)
[2025-02-28] MEDS: Heparin IV Adult Wt-Based Low-Dose w/ INITIAL Bolus Protocol IV STA (15:43)
[2025-02-28 17:20] LABS: iSTAT Art Bld Gas Base Excess -3.0 mmol/L (-9-1.8)
[2025-02-28 17:24] LABS: iSTAT Art Bld Gas Base Excess -3.0 mmol/L (-9-1.8)
[2025-02-28 17:24] LABS: iSTAT Art Bld Gas Base Excess -3.0 mmol/L (-9-1.8)
[2025-02-28 17:25] LABS: iSTAT Art Bld Gas Base Excess -6.0 mmol/L (-9-1.8)
--- NOTE | 2025-02-28 17:32 | Emergency Department Note ---
ED Visit Note Called to the Physician Compensation Analyst to intubate the patient by the cardiology team. Patient undergoing cardiac catheterization and evidently became quite hypotensive and requiring vasopressor support. She was somewhat drowsy and had an episode of vomiting and was somewhat hypoxic in the 80s. Upon arrival she has been placed on nasal cannula and oxy mask. Physician Compensation Analyst staff, apparel patternmaker Dr. Hurtado, and respiratory team are present. Discussed briefly with the patient and proceeded with RSI and intubation as below. No obvious complications and postintubation pulse ox improved to approximately 89%. Left in the care of the cardiac catheterization team. Intubation performed by myself, emergent in nature Indication hypoxic respiratory failure, airway protection The patient was on 100% oxygen via nasal cannula and oxy mask prior to the procedure. Initially suction, airway equipment, RSI drugs, respiratory equipment, and appropriate personnel were prepared prior to the initiation of the procedure. Induction was performed with 20 mg of etomidate and 120 mg of succinylcholine. BVM was utilized with respiratory assistance. Preintubation SpO2 approximately 84%. After observing the clinical benefit of the medications, the airway was easily visualized utilizing a S3 GlideScope. A 7.5 size ETT tube was placed atraumatically to 23 cm using standard technique. The cuff inflated without signs of malfunction. There were bilateral breath sounds, positive colormetric change, and post procedure pulse oximetry was 89%. There were no complications apparent from intubation. .
--- NOTE | 2025-02-28 18:28 | Discharge Summary ---
Discharge Summary Date of Service February 28, 2025 Principal Dx & Hospital Course #1 = Principal Diagnosis (1) Cardiogenic shock: (2) Takotsubo cardiomyopathy: (3) Acute non-ST elevation myocardial infarction (NSTEMI): (4) Hypokalemia: (5) HTN (hypertension): Plan Patient was immediately taken to the cardiac Associate Professor Of [employer] from the emergency department. Patient underwent cardiac catheterization which did not show any occluded arteries. However, patient went into acute cardiogenic shock. Impella was placed. Patient was life flighted to [facility] from the cardiac [employer]. Interventional cardiology/cardiology coordinated the transfer from the cardiac [employer]. I was unable to evaluate the patient or get updates on the patient from the time the patient was taken from the ED. Notified by the automotive quality engineer that the transfer was taken place. Notes For Next Care Provider Medication Changes From Visit Transferred to [facility] on multiple new medications and drips Admission HPI Per Admitting Provider Patient 69-year-old female with overall fairly good state of health. She is quite active doing light exercising and walking on a daily basis. Today shortly after her morning exercise routine she became pale, diaphoretic, started to have chest discomfort across her chest and substernally and Generally felt unwell. Called 911. In the field EMS noticed significantly low blood pressure. Initial EKG showed frequent PVCs and questionably some mild ST-T wave changes inferior laterally. She was given aspirin, fluid bolus in the field and also started on amiodarone for concern of her PVCs degenerating into a more unstable rhythm. In the emergency room she was noted to be significantly ill. Blood pressure did improve somewhat with IV fluid resuscitation. Due to her presentation cardiology was consulted to see the patient immediately in the emergency department. Patient was referred to our service to coordinate her care through the hospital. At time my evaluation cardiology was at the bedside. Echocardiogram was being performed. Live interpretation of the echocardiogram by cardiology noted the significant wall motion abnormalities and decreased ejection fraction. There was concern of either global hypoperfusion versus Takotsubo cardiomyopathy. It was recommended that she go to the cardiac catheterization lab immediately. Laboratory study showed some electrolyte abnormalities. These were replaced. She was also started on amiodarone drip and heparin drip. is at the bedside. He reports that only real symptoms over the last couple weeks was noted that when she was going on her usual walks she was having some chest tightness versus shortness of breath when walking up the hill and sometimes had to stop and rest before completing the hill. It was difficult for them to tell whether this was a pulmonary or cardiac source. She actually had some outpatient lung function testing and scheduled to see pulmonary for further evaluation. She does have regular echocardiogram last echocardiogram was almost 1 year ago which at that time showed a normal ejection fraction. She did have a stress echo performed in May of this year. There was no evidence of ischemia on the stress echo. Ejection fraction was read as normal at that time. She did have some mitral valve prolapse and mitral regurgitation. But there was also no evidence of pulmonary hypertension. Patient was still having some ongoing chest pain and discomfort while here in the emergency department. She denies any fever or chills, no cough or cold symptoms. She has chronic constipation which she is on medication for but no changes in her bowel habits otherwise. No urinary complaints. No swelling in her hands arms legs or feet. Appetite has been good. And no life stressors recently per her or her . Patient has never smoked, no significant alcohol use. Both parents had significant coronary disease and required coronary bypass grafting. Admission Exam Per Admitting Provider See H&P Discharge Exam Unable to perform discharge exam due to the fact that she was life flighted from the cardiac Associate [employer]. Updated Medication List Medication Instructions Recorded Confirmed Type calcium 400 mg 2 tab PO DAILY 02/02/18 02/02/18 History (carbonate)-magnesium 167 mg (oxide)-D3 133 unit tablet (Calcium Magnesium plus D) docusate sodium 50 mg capsule 50 mg PO DAILY 02/02/18 02/02/18 History (Stool Softener) glucosamine sulfate 500 mg tablet 500 mg PO BID 02/02/18 02/02/18 History (Glucosamine) levothyroxine 75 mcg tablet 75 mcg PO DAILY 02/02/18 02/02/18 History (Synthroid) losartan 25 mg tablet (Cozaar) 25 mg PO DAILY 02/02/18 02/02/18 History lubiprostone 24 mcg capsule 24 mcg PO BID 02/02/18 02/02/18 History metoprolol succinate 25 mg 25 mg PO DAILY 02/02/18 02/02/18 History tablet,extended release 24 hr multivitamin 1 tab PO DAILY 02/02/18 02/02/18 History omega 3-gmi-qam-fish oil 1,000 mg 1 tab PO QID 02/02/18 02/02/18 History (120 mg-180 mg) capsule (Fish Oil) venlafaxine 75 mg tablet 75 mg PO DAILY 02/02/18 02/02/18 History linaclotide 290 mcg capsule 290 mcg PO DAILY #90 caps 01/11/19 Rx (Linzess) Hospital Stay Data Consultations 02/28/25 12:48 ED Decision to Admit Stat 02/28/25 14:55 Consult Color Control Operator Routine Procedures Performed Operation Date: 02/28/25 14:00 Actual Procedures s Cineradiography w/Routine Exam - Timmy Hurtado MD p Cath, Right and Left Heart - Timmy Hurtado MD p Impella Insertion LT Heart - Timmy Hurtado MD Diagnostic Imagining Performed 02/28/25 13:34 CL Cath Imgs for PACS use only Stat Discharge Instructions Given to Patient (Per Discharging Provider) Patient transferred Total Time Total Time Spent Total Time Spent (In Minutes): 15
--- NOTE | 2025-03-03 06:09 | Electrocardiogram Report ---
Test Reason : Blood Pressure : */* mmHG Vent. Rate : 65 BPM Atrial Rate : 65 BPM P-R Int : 194 ms QRS Dur : 104 ms QT Int : 444 ms P-R-T Axes : 76 -30 68 degrees QTcB Int : 461 ms Normal sinus rhythm Possible Left atrial enlargement Left axis deviation Low voltage QRS Inferior infarct , age undetermined Cannot rule out Anterior infarct , age undetermined Abnormal ECG When compared with ECG of 08-Apr-2009 15:33, Nonspecific ST abnormality is no longer present in anterolateral leads Confirmed by Willi Lewis ([id number]) on 03/03/2025 6:09:16 AM Referred By: Confirmed By: Willi Lewis
--- NOTE | 2025-03-03 06:10 | Electrocardiogram Report ---
Test Reason : Blood Pressure : */* mmHG Vent. Rate : 66 BPM Atrial Rate : 66 BPM P-R Int : 176 ms QRS Dur : 98 ms QT Int : 430 ms P-R-T Axes : 74 -46 70 degrees QTcB Int : 450 ms Normal sinus rhythm Possible Left atrial enlargement Left anterior fascicular block Inferior infarct (cited on or before 30-May-2006) Anteroseptal infarct (cited on or before 30-May-2006) Abnormal ECG When compared with ECG of 28-Feb-2025 11:49, No significant change was found Confirmed by Willi Lewis ([id number]) on 03/03/2025 6:09:47 AM Referred By: REFERRED SELF Confirmed By: Willi Lewis
== END 2025-02-28 18:25 | disposition short-term general hospital (02) | DRG 215 ==
LOC: ED 11:45 → ASUINP 13:10 → CC 13:32